=== PATIENT | male | born 1935 | race Caucasian/White ===

== ENCOUNTER → 2018-02-01 | Outpatient (CLI) | payer MEDICARE, OTHER ==
[~2018-02-01] MED LIST: ACE3 PO; ALL100 PO; AML5 PO; ATOR20TA65 PO; BAC PO; CALC500C PO; CEP500 PO; ENO40I SQ; FA/M1TAB27 PO; FERROUS GL325 ( 36 ) PO; FINA5TAB67 PO; GLUC750T10 PO; HCTZ25 PO; LEVO-85 PO; LIS20 PO; LOR7.5/325 PO; PRA20 PO; PRE5 PO; SOL5 PO; TERA5CAP57 PO; TERA5CAP59 PO
== END ==
LOC: LAB 09:46
PROVIDERS: ATTEND Internal Medicine
DX: I48.91 Unspecified atrial fibrillation (principal)
CPT/HCPCS: 36415; 82310; 82374; 82435; 82565; 82947; 84132; 84295; 84520; 85027

== ENCOUNTER 2018-02-11 16:50 | Emergency (ER) | payer MEDICARE, OTHER ==
[2018-02-11 17:03] VITALS: BP 148/99
--- NOTE | 2018-02-11 18:00 | ER Report ---
History and Physical Time Seen By MD: 17:30 Hx. of Stated Complaint: patient had an ablation done on Thursday, he has two punture site in groin, they have hardened area and patient has numbness in tingling in his toes, his d/c work states to get checked out if this happens. HPI/ROS CHIEF COMPLAINT: right groin bruise HISTORY OF PRESENT ILLNESS: Pt is 5 d s/p cardiac ablasion. He had bilateral femoral a puncture sites. He was told to be seen if they became firm or he had concerns. He presents with concern of hardening of r puncture site and tingling in toes on R side. He denies leg swelling, fevers, redeness, expanding bruising, cp, sorb, or other concerns. REVIEW OF SYSTEMS: Respiratory: No cough, no dyspnea. Cardiovascular: No chest pain, no palpitations. Gastrointestinal: No vomiting, no abdominal pain. Musculoskeletal: No back pain. Remainder of the 14 system rev: Yes Allergies: Coded Allergies: No Known Drug Allergies (Verified , 02/11/18) Home Meds Reported Medications Metoprolol Succinate (METOPROLOL SUCCINATE) 50 Mg Tab.er.24h, 1 TAB PO QPM, TAB 02/11/18 Apixaban (ELIQUIS) 5 Mg Tablet, 5 MG PO BID 02/11/18 Aspirin (ASPIRIN EC) 81 Mg Tablet.dr, 81 MG PO QDAY, TAB 02/11/18 Pantoprazole Sodium (PANTOPRAZOLE SODIUM) 40 Mg Tablet.dr, 40 MG PO QDAY, TAB.SR 02/11/18 Dronedarone Hcl (MULTAQ) 400 Mg Tablet, 400 MG PO BID 02/11/18 Levofloxacin 500 Mg Tab (LEVAQUIN 500 MG TAB) 500 Mg Tablet, 750 MG PO QDAY, TAB 06/30/15 Finasteride (FINASTERIDE) 5 Mg Tablet, 5 MG PO QDAY 06/30/15 Terazosin Hcl (TERAZOSIN HCL) 5 Mg Capsule, 5 MG PO BID, CAPSULE 06/30/15 Atorvastatin Calcium (ATORVASTATIN CALCIUM) 20 Mg Tablet, 1 TAB PO QDAY, TAB 06/30/15 Hydrochlorothiazide (Hydrochlorothiazide) 25 Mg Tab, 25 MG PO QDAY, 0 Refills 08/05/10 Allopurinol (Zyloprim) 100 Mg Tab, 100 MG PO QDAY, 0 Refills 08/05/10 Discontinued Scripts Prednisone 5 Mg Tab (PREDNISONE 5 MG TAB) 5 Mg Tablet, 5 MG PO QDAY for reduction of inflammation, #12 Take 2 tablets per day for 4 days, then one tablet per day for 4 days Prov:ALICIA MONGE DO 06/30/15 Reviewed Nurses Notes: Yes Hx Smoking: No Smoking Status: Never Smoker Constitutional Vital Sign - Last 24 Hours 02/11/18 17:03 Temp 98.4 Pulse 74 Resp 16 B/P (MAP) 148/99 Pulse Ox 93 O2 Delivery Room Air Physical Exam General Appearance: The patient is alert, has no immediate need for airway protection and no current signs of toxicity. Eyes: Pupils equal and round no injection. Respiratory: No respiratory distress. Cardiac: regular rate and rhythm Gastrointestinal: Abdomen is soft and non tender, no masses Musculoskeletal: Extremities have full range of motion and are non tender. Skin: bilateral ecchymoses prox ant femur/inguinal ligament c/w healing hematomas. Bilaterally, femoral a pulse is present. Both have middle area of i nduration; on right approx 1x1 cm. The ecchymosis is not tense, pulsatile, and does not appear to be expanding. Distal pulses - PT 2+ bilaterally; DP 1+ bilaterally, CR < 2 sec. 5/5 ms, nl lt touch. DIFFERENTIAL DIAGNOSIS: After history and physical exam differential diagnosis was considered for arterial/venous thrombus, infection, arterial bleeding, or other emergent complication of cath Medical Decision Making ED Course/Re-evaluation ED Course Pt presents for concern of arterial puncture site, bill on right. There is no sign of dvt, arterial thromboembolus, or expanding hematoma. Note report of tingling, however sensory/motor exam unremarkable. Pt appears to be healing well, though recommend close f/u for repeat neurovascular exam. Pt is comfortable with this plan. Decision to Disposition Date: Feb 11, 2018 Decision to Disposition Time: 18:00 Depart Departure Latest Vital Signs Vital Signs Date Time Temp Pulse Resp B/P (MAP) Pulse Ox O2 Delivery O2 Flow Rate FiO2 02/11/18 17:03 98.4 74 16 148/99 93 Room Air Impression: Primary Impression: Hematoma following angiography Condition: Improved Disposition: HOME OR SELF-CARE Referrals: PONCE REGAN MD (PCP) Departure Forms: Medications Reconciliation, Patient Portal Information, ER Transition Record Additional Instructions: Continue to use ice as necessary; return for new weakness, worsening paresthesias, fevers, shortness of breath, or any concerns. TAISHA SAAVEDRA MD Feb 11, 2018 18:00
[2018-02-11] MEDS ORDERED: DRON400T4 PO (18:27)
[2018-02-11] MEDS ORDERED: ASPI81TA86 PO (18:27)
[2018-02-11] MEDS ORDERED: PANT40TA65 PO (18:27)
[2018-02-11] MEDS ORDERED: METO50TA19 PO (18:27)
[2018-02-11] MEDS ORDERED: APIX5TAB PO (18:27)
== END 2018-02-11 18:01 | disposition home or self-care (01) ==
LOC: ER 17:02
DX: S30.1XXA Contusion of abdominal wall, initial encounter (principal); Z98.890 Other specified postprocedural states
CPT/HCPCS: 99281

== ENCOUNTER → 2018-05-28 | Outpatient (REF) | payer MEDICARE, OTHER ==
[~2018-05-28] MED LIST changes: +APIX5TAB PO; +ASPI81TA86 PO; +DRON400T4 PO; +METO50TA19 PO; +PANT40TA65 PO
== END ==
LOC: ZZSENDIN 12:00
PROVIDERS: ATTEND Urology
DX: C61 Malignant neoplasm of prostate (principal)
CPT/HCPCS: 88305; 88344